=== PATIENT | male | born 1960 | race Caucasian/White ===

== ENCOUNTER → 2020-12-27 | Outpatient (CLI) | payer BC, OTHER ==
[~2020-12-27] MED LIST: BENAZEPRIL HCL20 MG PO; ELIQUIS5 MG PO; METOPROLOL SUCC25 M1 PO; NORVASC5 MG PO; PACERONE 200 M200 M1 PO; ROSUVASTATIN CA10 MG PO; VIAGRA100 MG PO; ZOCOR 20 MG TAB20 M1 PO
[2020-12-27 15:39] LABS: URINE BILIRUBIN NEGATIVE (Negative); URINE BLOOD NEGATIVE (Negative); URINE CLARITY CLEAR; URINE COLOR YELLOW; URINE GLUCOSE-RANDOM* TRACE (Negative); URINE KETONES NEGATIVE (Negative); URINE LEUKOCYTES-REFLEX NEGATIVE (Negative); URINE NITRITE-REFLEX NEGATIVE (Negative); URINE PROTEIN (DIPSTICK) NEGATIVE (Negative); URINE UROBILINOGEN 0.2 E.U./dl (0.2-1.0)
[2020-12-27 15:40] LABS: HEMATOCRIT 45.4 % (42.0-52.0); HEMOGLOBIN 15.1 gm/dL (14.0-18.0); MCH 29.6 pg (26.0-34.0); MCHC 33.3 g/dL (28.0-37.0); RBC 5.1 mil/uL (4.50-6.00); RDW 13.3 % (10.5-14.5); WBC 4.7 thou/uL (4.0-11.0)
[2020-12-27 15:49] LABS: ALBUMIN 3.7 g/dL (3.4-5.0); CALCIUM 8.6 mg/dL (8.5-10.1); CREATININE 0.9 mg/dL (0.7-1.3); POTASSIUM 4.4 mmol/L (3.5-5.1)
--- NOTE | 2020-12-27 15:49 | EKG ---
[place] [address] [facility] [employer] [place] [address] ELECTROCARDIOGRAM REPORT Name: SANDER GUNN [facility] [id number] Admission: 12/27/20 Attend Phys: Brice Caballero MD Discharge: Date of : 56 Report #: [id number] [facility] Test Date: 2020-12-27 Test Time: 15:08:19 Pat Name: SANDER GUNN Department: Room: Gender: Facility Maintenance Helper: KYARA : 1960 Requested By: Brice Caballero Order Number: [id number] : Ang Gore Measurements Intervals [place] Rate: 62 P: 18 NV: 183 QRS: -13 QRSD: 113 T: 8 QT: 434 QTc: 441 Interpretive Statements Sinus rhythm Borderline intraventricular conduction delay Abnormal R-wave progression, early transition No previous ECG available for comparison Electronically Signed On 12-27-2020 15:49:06 CDT by Ang Gore [email or web address] <ELECTRONICALLY SIGNED> By: Ang Gore MD, [facility] 12/27/20 1549 1508 1508 Ang Gore MD, FACC /EPI
[2020-12-27 15:59] LABS: PROTIME 10.9 Seconds (10.5-12.1)
== END ==
LOC: PAC 11:36
PROVIDERS: ATTEND Orthopaedic Surgery
DX: Z01.810 Encounter for preprocedural cardiovascular examination (principal); Z01.812 Encounter for preprocedural laboratory examination; M16.11 Unilateral primary osteoarthritis, right hip; R94.31 Abnormal electrocardiogram [ECG] [EKG]

== ENCOUNTER 2021-01-07 06:59 | Observation (INO) | payer BC, OTHER ==
[~2021-01-07] VITALS: Ht 177.8 cm; Wt 114.3 kg
[2021-01-07 08:00] VITALS: BP 140/78
--- NOTE | 2021-01-07 16:00 | NUR ---
ADMTTED TO 4S FOR RIGHT HIP REPLACEMENT. A/O X 4. RROM AIR. ONE ASSIST WITH WALKER. RIGHT HIP HUNG DRESSING/DRAIN-DRY, CLEAN, AND INTACT. ICE PACK TO RIGHT HIP. LR INFUSING @ 100 MLS/HR VIA RIGHT HAND IV. CPAP MACHINE FORM HOME @ BEDSIDE. @ BEDSIDE. BILATERAL SCDS AND TEDS. MINIMAL PAIN NOTED 2/10 TO RIGHT HIP.
--- NOTE | 2021-01-07 16:00 | NUR ---
Right hip OA. Spoke with Negro and his Oma. He will need FWW. Provider plus will deliver walker tomorrow.
[2021-01-07 16:38] VITALS: BP 119/54
[2021-01-07 19:01] VITALS: BP 125/73
--- NOTE | 2021-01-08 04:19 | NUR ---
RECEIVED CARE OF THIS PATIENT AT 1900. PATIENT ALERT AND ORIENTED X4. DRESSING ON HIP D/I. UP TO BATHROOM WITH SBA. SCHEDULED PAIN MED GIVEN. IV PATENT WITHFLUIDS INFUSING.SLEPT OFF AND ON THIS SHIFT.
[2021-01-08 04:42] VITALS: BP 150/81
[2021-01-08] MEDS ORDERED: HYDROCODON-ACE1 EAC7 PO (08:09)
[2021-01-08] MEDS ORDERED: MS CONTIN15 MG PO (08:10)
[2021-01-08 08:41] VITALS: BP 129/67
--- NOTE | 2021-01-08 10:32 | NUR ---
Assumed care of pt at 0700. Pt a&ox4. Pain controlled with prn pain medications. Dressing c/d/i. Pt worked with physical therapy and is cleared to go home.
[2021-01-08 10:34] VITALS: BP 150/81
--- NOTE | 2021-01-10 08:40 | O ---
[facility] [place] [address] OPERATIVE REPORT Name: SANDER GUNN Room #: 434-P [facility] Roselia Dewey#: [id number] Admission: 01/07/21 Attend Phys: Brice Caballero MD Discharge: 01/08/21 Date of : 56 Report #: [id number] THIS REPORT FOR: cc: [facility] - Family physician unknown Brice Caballero MD ~ DATE OF SERVICE: 01/07/2021 PREOPERATIVE DIAGNOSIS: Right hip osteoarthritis. POSTOPERATIVE DIAGNOSIS: Right hip osteoarthritis. PROCEDURE: Right total hip arthroplasty. SURGEON: Brice Caballero MD. BELT GLASS SANDER: Lyric Zepeda PA-C. INDICATION FOR BELT GLASS SANDER: Throughout the case, extensive retraction and manipulation of the hip was required including dislocation and reduction. This was afforded to me by my operations assistant. ANESTHESIA: LMA. IMPLANTS: A [employer] size 13 high offset Synergy press-fit stem, a size 56 R3 acetabular cup with 1 acetabular screw, a size 40+4 Oxinium head. ESTIMATED BLOOD LOSS: 200 mL COMPLICATIONS: None. SPECIMENS: None. CONDITION UPON LEAVING THE OR: Stable. INDICATIONS FOR PROCEDURE: The patient is a 60-year-old gentleman with right hip osteoarthritis. He had failed conservative measures for this and after discussion with him, he elected for right total hip arthroplasty. DESCRIPTION OF PROCEDURE: Risks, benefits, alternatives, complications were discussed in detail with the patient including but not limited to risk of anesthesia, risk of damage to nerves, arteries, blood vessels, risk for infection, bleeding, risk for leg length discrepancy, instability and need for reoperation. Informed consent was obtained from the patient. The right hip was appropriately marked in the preoperative holding area. IV Ancef was given for preoperative antibiotics. He was brought to the operating room and placed in [address] [address] OPERATIVE REPORT Name: SANDER GUNN Room #: 434-P JOHN Dewey#: [id number] Admission: 01/07/21 Attend Phys: Brice Caballero MD Discharge: 01/08/21 Date of : 56 Report #: [id number] supine position on the operating table. LMA anesthesia was induced without complication. He was then placed in the left lateral decubitus position with the right hip uppermost. Right hip and lower extremity were prepped and draped in normal sterile fashion. Timeout was performed properly identifying the patient and procedure as well as the instrumentation and implants. All in the operating room in agreement. Standard posterior approach to the hip was made with 10 blade through the skin. Dissection was taken down to fascia with Bovie cautery and Mancilla elevator was used to clean off the fascia. Fresh 10 blade was used to make a fascial incision. This was taken proximally and distally with curved Guaman scissor. Charnley retractor was placed. Trochanteric bursa was taken down with Bovie cautery. Short external rotators were also taken down with Bovie cautery. Piriformis tendon was identified, tagged and taken down with Bovie. Capsulotomy was made and capsule ends were tagged for later repair. Hip was dislocated. There was extensive osteoarthritic change of the femoral head. Femoral neck cut was made 1 cm proximal to the lesser trochanter based on preoperative templating and the femoral head was removed. Deep acetabular retractors were placed. Labrum was removed sharply. Pulvinar was removed with Bovie cautery. Acetabulum was then sequentially reamed up to a size 56, at which point there was excellent bleeding cancellous bone. A size 55 trial cup was placed, found to have a good fit. Final size 56 R3 acetabular cup was placed and seated. One acetabular screw was placed for backup fixation and a polyethylene liner for a size 40 head was placed. Attention was turned to the femur, reamed and broached up to a size 13, at which point the size 15 broach was stable, was trialed with a high offset neck and a 40+0 head. Hip was reduced, taken through range of motion, found to be somewhat unstable in extreme internal rotation. In addition, he was somewhat short on the right compared to the left. Hip was dislocated and this was trialed again with a 40+4 head. Hip was reduced, taken through range of motion, found to be stable, found to have equal leg lengths. Hip was dislocated. The broach was removed. An Arthrex cerclage FiberTape was placed around the proximal femur for prophylactic fixation, a final size 13, high offset Synergy press-fit stem was placed and seated. This was then trialed again with a size 40+4 head. Hip was reduced, taken through range of motion, found to be stable, found to have equal leg lengths. Hip was dislocated one last time and a final size 40+4 Oxinium head was placed. Hip was reduced, taken through range of motion, found to be stable, found to have equal leg length. The wound was thoroughly irrigated with normal saline. A periarticular injection consisting of morphine, ropivacaine, epinephrine, Toradol was placed around the hip joint capsule. A gram of vancomycin was placed deep in the joint and the capsule and piriformis were repaired with 0 FiberWire. Fascia was closed with 0 Vicryl. Skin was closed with 2-0 Vicryl, skin staple and a [facility] [address] [place] [address] OPERATIVE REPORT Name: SANDER GUNN Room #: 434-P [facility] Roselia Dewey#: [id number] Admission: 01/07/21 Attend Phys: Brice Caballero MD Discharge: 01/08/21 Date of : 56 Report #: [id number] dressing was applied. The patient tolerated this procedure well and went to recovery room under care of anesthesia postoperatively. <ELECTRONICALLY SIGNED> By: Brice Caballero MD 01/10/21 0840 1328 14 Brice Caballero MD /nt
== END 2021-01-08 11:47 | disposition home or self-care (01) ==
LOC: OR → TBA 07:01 → OR 11:23 → 4S 14:30 → OR 14:31 → 4S 14:31
PROVIDERS: ADMIT Orthopaedic Surgery; ATTEND Orthopaedic Surgery
DX: M16.11 Unilateral primary osteoarthritis, right hip (principal); Z20.822 Contact with and (suspected) exposure to COVID-19; F41.9 Anxiety disorder, unspecified; I10 Essential (primary) hypertension; E78.00 Pure hypercholesterolemia, unspecified; Z79.899 Other long term (current) drug therapy
CPT/HCPCS: 50010; 50101; 50382; 50414; 51412; 53000; 53078; 53368; 56524; 56528; 56530; 57095; 57103; 57978; 57979; 62110; 62900; 70005